=== PATIENT | male | born 1990 | race Caucasian/White ===

== ENCOUNTER 2017-12-26 12:42 | Emergency (ER) | payer BC ==
[~2017-12-26] VITALS: Ht 167.6 cm; Wt 76.0 kg
[2017-12-26 13:17] VITALS: BP 135/71
[2017-12-26] MEDS ORDERED: DOXY100C43 PO (15:05)
[2017-12-26] MEDS ORDERED: CEPH250T PO (15:05)
== END 2017-12-26 15:08 | disposition home or self-care (01) ==
LOC: ER 12:43
DX: L08.9 Local infection of the skin and subcutaneous tissue, unspecified (principal); J34.89 Other specified disorders of nose and nasal sinuses; Z86.14 Personal history of Methicillin resistant Staphylococcus aureus infection; Z79.899 Other long term (current) drug therapy
CPT/HCPCS: 99283

== ENCOUNTER 2025-07-15 16:57 | Inpatient (IN) | payer BC, MEDICAID ==
[~2025-07-15] VITALS: Ht 167.6 cm; Wt 68.0 kg
--- NOTE | 2025-07-15 17:21 | Physician Documentation ---
History of Present Illness Chief Complaint: Abdominal Pain Stated Complaint: CHEST PAIN Primary Medical Doctor: None HPI This is a 35-year-old male with history of pancreatitis who presents with epigastric pain onset this morning after ingesting alcohol. Patient reports v omiting without bloody emesis. Patient reports no fever. Chief Complaint: Abdominal pain, nausea vomiting Caveat: None Independent Historians: None History of Present Illness: Patient is a 35-year-old man who comes in complaining of abdominal pain that began earlier today with the associated nausea and vomiting. Pain is severe and diffuse. Patient last drank alcohol pr ior to arrival and had two shots of vodka but vomited immediately after. Patient has been drinking heavily for one month and drinks approximately 1-2 pt of vodka a day. Review of systems: All systems were reviewed and are negative except for what is indicated in the history of present illness. Past Medical History: Alcohol use disorder Past Surgical History: None Social History: Heavy alcohol use, occasional marijuana, denies other drug use Medications: Reviewed as documented Nursing Notes Allergies: Reviewed as documented in Nursing Notes Medication Reconciliation Allergies: Coded Allergies: sulfamethoxazole (Unverified Allergy, Unknown, HIVES, EDEMA, 07/15/25) trimethoprim (Unverified Allergy, Unknown, HIVES, EDEMA, 07/15/25) Past Medical History Past Medical History: MRSA Abscess Past Surgical History: noncontributory Alcohol Use: None Drug Use: none Lives with: Family Lives In: Home Review of Systems All Other Systems at this time: Reviewed and Negative ROS As stated above in the HPI, otherwise all systems are reviewed and negative. Patient denies any other acute symptoms other than above. All other systems are negative Physical Exam Vital Signs: RN Vital Signs have been reviewed: Yes, Temperature: 97.9, Source: Temporal, Heart Rate: 113, Respiratory Rate: 20, BP: 138/94, Pulse Oximetry: 97, Weight: 67.950 Oxygen Flow Rate: 0 Physical Exam General Appearance: MODERATE DISTRESS HEENT: Normal OP, DRY ORAL MUCOSA, PERRL, EOMI Neck: supple, normal ROM, trachea midline Pulmonary: No respiratory distress, MILD TACHYPNEA, CTA, BS equal Cardiac: TACHYCARDIC, REGULAR RHYTHM, no murmur, rub or gallop, GI: nondistended, soft, DIFFUSE TENDERNESS, normal bowel sounds, no guarding, no rebound Extremities: normal ROM, no swelling, non-tender Skin: intact, dry, warm, no rashes Neuro: AAOx3, speech is clear, no focal motor weakness Psych: normal affect, good eye contact, no apparent hallucination, normal speech Progress Results/Orders Results/Orders Vital Signs 07/15/25 17:07 Temp 97.9 Pulse 113 Resp 20 B/P (MAP) 138/94 Pulse Ox 97 O2 Flow Rate 0 Medical Decision Making Additional info obtained from: old records Findings MSE performed in triage and patient returned to ED lobby by nursing staff to await available ED room. Abdominal pain lab protocol initiated by nursing staff. Differential diagnosis includes but is not limited to: ACUTE PANCREATITIS, ACUTE GASTRITIS, ACUTE HEPATITIS, DEHYDRATION, ALCOHOL INTOXICATION, ALCOHOL WITHDRAWAL, ALCOHOLIC KETOACIDOSIS EKG independent interpretation: Performed at 5:01 p.m.. Sinus tachycardia, heart rate 119, normal axis, normal ST segments Chest x-ray, single view, indication: Tachycardia, alcohol withdrawal Independent interpretation: Lungs are clear, normal mediastinum, normal cardiac silhouette, no subdiaphragmatic free air, no acute cardiopulmonary process. CTA abdomen and pelvis with IV contrast, indication: Abdominal pain Impression: 1. Limited evaluation given noncontrast technique. 2. Possible peripancreatic free fluid. Correlate with lipase for possible acute pancreatitis. 3. Hepatomegaly with hepatic steatosis. 4. Bilateral nonobstructive nephrolithiasis. 5. Diverticulosis without evidence of acute diverticulitis. Laboratory data independent interpretation: CBC: Leukocytosis 13.8 CMP: Total bilirubin elevated at 3.9, LFTs are otherwise unremarkable, lipase elevated at 283, anion gap 20 Toxicology: Blood alcohol 13 Emergency department course/medical decision-making: Patient is a 35-year-old man who started drinking alcohol again and comes in with the abdominal pain. Patient is found to have acute alcoholic pancreatitis. Patient may also have some mild alcoholic ketoacidosis. Patient is given 1 L of normal saline. Patient is given Zofran 4 mg IV, morphine 4 mg IV. Patient will require IV Valium for probable alcohol withdrawal. Recommend admission. Test results and treatment plan reviewed with the patient. Consultation/communications: 10:10 p.m.: Case discussed with the resident hospitalist. She will evaluate the patient for admission. Departure Time of Disposition: 21:36 Admission Level of Care: Med/Surg Impression: Primary Impression: Acute pancreatitis Qualified Codes: K85.20 - Alcohol induced acute pancreatitis without necrosis or infection Additional Impression: Alcohol use disorder Condition: Fair Education Educated: Patient Educated regarding: diagnosis, treatment Signature Scribe Signature: No scribe Attestation: No scribe SHANIQUA TINAJERO Jul 15, 2025 17:21 CAMI GONZALEZ MD Jul 15, 2025 21:36
[2025-07-15 17:39] LABS: MEAN PLATELET VOLUME 7.3 FL (7.4-10.4); RED CELL DISTRIBUTION WIDTH 13.5 % (11.5-14.5)
[2025-07-15 17:51] LABS: CREATININE 0.97 MG/DL (0.60-1.10); TOTAL CARBON DIOXIDE 21.2 MMOL/L (24-32); eCRCL 98 ML/MIN; eGFR 89 ML/MIN
[2025-07-15 18:00] LABS: PRO BRAIN NATRIURETIC PEPTIDE < 30 PG/ML (0-125)
[2025-07-15] MEDS: ondansetron/PF 4mg/2ml inj IV ONE (20:35)
[2025-07-15] MEDS: normal saline 1000ML IV soln IVB ONE (20:36)
[2025-07-15] MEDS: morphine 4 MG/ML inj SYRINge IV PRN (20:36)
--- NOTE | 2025-07-15 20:51 | RADIOLOGY REPORT ---
Exam: CT CT ABDOMEN PELVIS History: Abdominal Pain Comparison Study: None TECHNIQUE: Multidetector CT of the abdomen and pelvis was performed from lung bases to pubic symphysi s. Imaging was performed without IV contrast. Axial, coronal, and sagittal multiplanar reformats were obtained from the axial data set by the technologist. RADIATION DOSE: DLP 534.17 mGy.cm; CTDI vol 10.48 mGy. Findings: Limited evaluation given noncontrast technique. Lungs: The lung bases are clear. Heart: No cardiomegaly or pericardial effusion. Liver: Fatty infiltration of the liver. The liver measures 19.9 cm in craniocaudal dimension. Gallbladder: Unremarkable. Spleen: Unremarkable Pancreas: Possible peripancreatic free fluid. Adrenals: Unremarkable Kidneys: Bilateral nonobstructive nephrolithiasis. GI tract: Diverticulosis without evidence of acute diverticulitis. : Unremarkable. Vasculature: Unremarkable Lymphadenopathy: Absent Peritoneum: No ascites Musculoskeletal: Unremarkable Soft tissues: Unremarkable Impression: 1. Limited evaluation given noncontrast technique. 2. Possible peripancreatic free fluid. Correlate with lipase for possible acute pancreatitis. 3. Hepatomegaly with hepatic steatosis. 4. Bilateral nonobstructive nephrolithiasis. 5. Diverticulosis without evidence of acute diverticulitis.
[2025-07-15 21:44] LABS: ETHANOL 13 MG/DL (<10)
--- NOTE | 2025-07-15 22:07 | RADIOLOGY REPORT ---
CHEST RADIOGRAPH Indication: abdominal pain Technique: Single frontal view of the chest was obtained Comparison: None FINDINGS: Lines and Tubes: None Lungs: No focal consolidation. Pleura: No effusion. No pneumothorax. Cardiomediastinal contours: Unremarkable Bones: No acute osseous abnormality. IMPRESSION: No acute cardiopulmonary disease.
[2025-07-15] MEDS: ketorolac trometh 15mg/ml vial 15 MG/ML ML IV ONE (22:36)
[2025-07-15] MEDS: HYDROmorphone inj. 0.5 MG/0.5 ML DISP.SYRIN IV ONE (22:38)
[2025-07-15] MEDS ORDERED: morphine 4 MG/ML inj SYRINge IV PRN (22:45)
[2025-07-15] MEDS ORDERED: potassium Cl 40MEQ/1/2NS 520ml 520 ML IV PRN (22:50)
[2025-07-15] MEDS ORDERED: magnesium Cl slow-release 64mg tablet PO PRN (22:50)
[2025-07-15] MEDS ORDERED: ondansetron/PF 4mg/2ml inj IV PRN (22:50)
[2025-07-15] MEDS ORDERED: mag hydrox/Alum hydrox/simeth 30ml oral suspension PO PRN (22:50)
[2025-07-15] MEDS ORDERED: potassium Cl 20 mEq SR tablet PO PRN (22:50)
[2025-07-15] MEDS ORDERED: magnesium sulf-water 4G/100mL 100 ML IV PRN (22:50)
[2025-07-15] MEDS ORDERED: magnesium sulf-water 2g/50mL 50 ML IV PRN (22:50)
[2025-07-15] MEDS: ringers solution, lactated 1000ml IV soln IV ONE (22:55)
[2025-07-15] MEDS: diazepam inj 5 MG/ML inj. IV ONE (22:55)
[2025-07-15] MEDS ORDERED: haloperidol lactate 5mg/ml inj IM PRN (23:00)
--- NOTE | 2025-07-15 23:22 | HISTORY AND PHYSICAL-Residence ---
History & Physical Providers to CC Resident Creating Document: SANDRA ANDREWS RES ~ History of Present Illness Primary Medical Doctor: None Reason for Admit\Complaint: abdominal pain History of Present Illness 35 year old male with past medical history of severe alcohol abuse and pancreatitis has come to the ED with chief complaints of abdominal pain. Patient reports that the pain mainly present in the epigastric region began earlier today at around 2pm in the afternoon, after consuming a couple of alcoholic drinks earlier in the day, progressively increasing in intensity,associated with nausea and vomiting. Patient rates the pain as 9/10 in intensity, radiating to his left back.Patient has been vomiting since the pain started , had about 5 episodes so far,no blood seen. Patient last drank alcohol prior to arrival. Patient usually drinks a lot but has been drinking heavily for the last one month , drinks approximately 1-2 pt of vodka a day.Patient denies any other complaints like SOB, palpitations, tremors. Allergies: Coded Allergies: sulfamethoxazole (Unverified Allergy, Unknown, HIVES, EDEMA, 07/15/25) trimethoprim (Unverified Allergy, Unknown, HIVES, EDEMA, 07/15/25) Home Medications Home Medications Active Past Medical History Past Medical History alcohol abuse pancreatitis Past Surgical History Surgical History Comment ankle surgeries, thumb surgery Past Social History Social History Comment Patient smokes once in a while. heavy alcohol drinker- started drinking since the age of 22 years,drinks mostly vodka, 1-2 pints per day. Patient is a homless. currently under disability. No other illicit drug use. FAMILY HISTORY- nothing significant. Smoking: Non-Smoker Alcohol Use: None Drug Use: None Lives with: Family Lives In: Home ROS All Other Systems: Reviewed and Negative ROS All Other Systems: Reviewed and Negative Constitutional: Reports: no symptoms reported Eyes: Reports: no symptoms reported ENT: Reports: no symptoms reported Respiratory: Reports: No symptoms reported Cardiovascular: Reports: no symptoms reported Gastrointestinal: Reports: severe epigastric pain radiating to his back.nausea Genitourinary: Reports: no symptoms reported Male Genitalia: Reports: no symptoms reported Neurological: Reports: no symptoms reported Musculoskeletal: Reports: no symptoms reported Integumentary: Reports: no symptoms reported Allergic/Immunologic: Reports: no symptoms reported Hematologic/Lymphatic: Reports: no symptoms reported Endocrine: Reports: no symptoms reported Psychiatric: Reports: no symptoms reported Exam Vitals: Vital Signs Date Time Temp Pulse Resp B/P (MAP) Pulse Ox O2 Delivery O2 Flow Rate FiO2 07/15/25 22:38 16 07/15/25 21:43 07/15/25 21:42 97.9 97 99 0 General: General: Alert, awake, oriented to time, person, place. In severe pain. HEENT: Conjunctiva pink, Sclera clear, Mucus Membranes moist. Neck: Supple without masses and tenderness. Resp: Normal vesicular breath sounds heard . No wheezing Heart: Regular Rate and rhythm, normal S1 and S2 without murmur, rub or gallop. Abdomen: Soft and tenderness noted all over the abdomen. no rigidity, no guarding bowel sounds present, Extremities: peripheral pulses well felt Skin: Warm and Dry. Neurology-no focal neurological deficits Diagnostic Data Last Recorded Lab Results: 07/15/25 17007/15/25 170 Diagnostic Data: Laboratory Tests Test 07/15/25 23:07 Coagulation Comments Advance Care Planning Advanced Care plannin - 30 Minutes (Full code) Additional Plan Abdominal pain Acute alcoholic pancreatitis BISAP SCORE-0 Vitals - stable WBC-9.7 , Procal normal, Lactic acid-5.4, trended down to 0.5. lipase-283 Triglycerides-232 Bilirubin-4.7 CT abdomen-Possible peripancreatic free fluid, gallbladder looks unremarkable. Received 2 L bolus, started on LR 150 mLs/hr. Patient on pain medication morphine p.r.n. Patient on clear liquid diet. Alcohol use disorder Toxicology positive for ethyl alcohol-13 Alcohol withdrawal protocol in place. Folic acid, thiamine being given. Substance use navigator consulted. High anion gap Alcoholic ketoacidosis Hypokalemia Hypomagnesemia Anion gap-20 Urine ketones-positive Hypokalemia Hypomagnesemia Continue IV fluids. Patient on potassium replacement protocol. Disposition- continue to monitor the patient. Substance use navigator to be consulted. Code Status: Full code DVT prophylaxis: Heparin Analgesia/sedation: Morphine Line/tube: PIV GI prophylaxis: None Nutrition: Clear liquid Physical therapy: Yes Prognosis: Guarded Sandra Andrews PGY-1 Date of Service: Jul 16, 2025 Billing Provider: CORRY MANDUJANO MD, PREETHI, RES Jul 15, 2025 23:22
[2025-07-15 23:26] LABS: INR 1.2 INR
[2025-07-15] MEDS ORDERED: MULT-1085 PO (23:35)
[2025-07-15] MEDS ORDERED: LORA-268 PO (23:35)
[2025-07-16] VITALS (9 sets, daily range): BP systolic 128–138; BP diastolic 75–97; PULSE 70–106; RESP 17–24; TEMP 97.2–98.9; O2SAT 97–99
[2025-07-16] MEDS: ringers solution, lacted 1,000 ML IV SCH (01:03)
[2025-07-16 01:31] LABS: LEUKOCYTE ESTERASE ,URINE NEGATIVE (Neg); NITRITES, URINE NEGATIVE (Neg); OCCULT BLOOD,URINE TRACE-INTACT (Neg)
[2025-07-16 01:32] LABS: UA COLLECTION TYPE CLN CATCH MIDSTREAM
[2025-07-16 01:38] LABS: MUCUS STRANDS MANY /LPF (Neg); SQUAMOUS EPITHELIAL CELL,UR FEW /LPF (FEW)
[2025-07-16 01:42] LABS: URINE AMPHETAMINE SCREEN NEGATIVE (Neg); URINE BARBITUATE SCREEN NEGATIVE (Neg); URINE BENZODIAZEPINES SCREEN POSITIVE (Neg); URINE CANNABINOID SCREEN NEGATIVE (Neg); URINE COCAINE SCREEN NEGATIVE (Neg); URINE METHADONE SCREEN NEGATIVE (Neg); URINE OPIATE SCREEN POSITIVE (Neg); URINE PHENCYCLIDINE SCREEN NEGATIVE (Neg)
[2025-07-16] MEDS: HYDROmorphone inj. 0.5 MG/0.5 ML DISP.SYRIN IV PRN (02:15)
[2025-07-16 03:09] LABS: MEAN PLATELET VOLUME 6.5 FL (7.4-10.4); RED CELL DISTRIBUTION WIDTH 13.4 % (11.5-14.5)
[2025-07-16 03:30] LABS: CREATININE 0.80 MG/DL (0.60-1.10); LDL CHOLESTEROL 44 MG/DL (50-100); TOTAL CARBON DIOXIDE 27.7 MMOL/L (24-32); eCRCL 119 ML/MIN; eGFR > 90 ML/MIN
[2025-07-16 03:38] LABS: CHOL/HDL RATIO 3.2 (0.00-4.99)
--- NOTE | 2025-07-16 06:17 | ELECTROCARDIOGRAPH REPORT ---
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
[2025-07-16] MEDS: K and/or MAG REPLACEMENT MC SCH (08:00)
[2025-07-16] MEDS: magnesium Cl slow-release 64mg tablet PO SCH (08:15)
[2025-07-16] MEDS: thiamine 100mg/ml 2ml inj. IV SCH (09:42)
[2025-07-16] MEDS: enoxaparin 40mg/0.4ml syringe SUBCUT SCH (09:42)
[2025-07-16] MEDS: docusate sod 100mg capsule PO SCH (09:43)
[2025-07-16] MEDS: folic acid 1mg/0.2ml inj IV SCH (09:44)
--- NOTE | 2025-07-16 15:40 | PROGRESS NOTE- Residence ---
Progress Note - Resident Providers to CC Resident Creating Document: JAIMIE TRIPATHI RES CC: SREE PAK MD ~ Antibiotic Timeout Antibiotic Ordered?: No Subjective Patient was seen and examined at his bedside. Patient continues to have severe pain even with slight movement. Patient had a drop in hemoglobin from 15 to 12g/dl, however no hemoptysis hematochezia noted. No other acute overnight symptoms noted Objective Vital Signs Date Time Temp Pulse Resp B/P (MAP) Pulse Ox O2 Delivery O2 Flow Rate FiO2 07/16/25 06:30 74 07/16/25 05:59 19 99 Room Air 07/16/25 02:00 98.1 131/88 (102) 07/15/25 22:15 0 General: Awake, oriented to person, place and time HEENT: Conjunctive are pink, sclerae clear, no icterus, pupil is equal in both sides, reactive to light, no ear discharge, no pharyngeal erythema or an edema. Neck: Supple, no JVD, no lymphadenopathy and thyromegaly. Chest: Equal air entry on both lungs, no additional sounds no rhonchi no wheezing at the moment. Cardiovascular: S1-S2 regular sinus rhythm and, regular rate, no gallops, no rubs, no murmurs Abdomen: No visible peristalsis, Bowel sounds present on auscultation, soft, severe tenderness throughout the abdomen, guarding and rigidity present Extremities: No obvious deformities, no pitting edema bilaterally, capillary refill intact, peripheral pulsations are intact on both sides Central Nervous System: No focal neurological deficits, no motor or sensory weakness in all 4 extremities, could move all 4 extremities, 2+ deep tendon reflexes, negative Babinski. Musculoskeletal: No joint swelling, deformities, inflammations, and no scoliosis and back tenderness Skin: Warm and dry. Dry oral mucosa. Result Diagram: 07/16/25 0300 07/16/25 0300 Coagulation Studies Laboratory Tests Test 07/15/25 23:07 Prothrombin Time 11.9 SECONDS (9.0-12.0) INR International Normalized Ratio 1.2 INR Coagulation Comments Assessment Assessment 35 year old patient with chronic history of alcohol abuse presented to the ED with symptoms of epigastric pain and is diagnosed with acute pancreatitis Plan Plan Acute Pancreatitis, alcohol intake Diagnostic criteria: abdominal pain in epigastrium, 3 X elevated serum lipase BISAP score:1; Lipase 283 History of Alcohol abuse (ethyl alcohol level >13) Urine toxicology ordered, positive for opiates and benzodiazepines CT abdomen report: Possible peripancreatic free fluid. Correlate with lipase for possible acute pancreatitis. Hepatomegaly with hepatic steatosis. Last drink was consumed last afternoon Patient received 1 L normal saline 1 L lactated ringer bolus Drop in hemoglobin 15.3 to 12.3g/dl(possibly due to hemodilution), patient has no complaints of hematemesis AST 34, ALT 22 Plan -NPO for now; advance diet as tolerated -follow up with abdominal ultrasound in view of liver cirrhosis -continue alcohol withdrawal protocol -initiated patient on Protonix 40 mg b.i.d. -continue lactated Ringer at 1:50 a.m. mL/hour Hyperlipidemia Triglycerides-232 No criteria for statin at this point Alcohol use disorder Toxicology positive for ethyl alcohol-13 Alcohol withdrawal protocol in place. Substance use navigator consulted. High anion gap alcoholic ketoacidosis, resolved Hypomagnesemia Replacement protocol in place Code Status: Full code DVT Prophylaxis: Lovenox Lines/Tubes: PIV Gi Prophylaxis: Protonix Nutrition: NPO PT:yes Prognosis: Guarded Disposition: Follow up with abdominal ultrasound, NPO currently ,advance diet as tolerated. Continue to closely monitor patient's hemoglobin Jaimie Tripathi MD Internal medicine resident,PGY-1 Addendum: Chart reviewed by me agree with the assessment and plan as above. Patient is a 35-year-old male admitted for acute pancreatitis, currently strict NPO only ice chips for now. AST and ALT are within normal limits he has elevated bilirubin 4.7 no signs of jaundice noted. Triglycerides 232. On the alcohol withdrawal protocol . Follow up with ultrasound of the abdomen. Ana Laura Li MD IM resident, PGY 3 Date of Service: Jul 16, 2025 Billing Provider: SREE PAK MD, JAHNAVI, DEDRICK Jul 16, 2025 15:40 ANA LAURA LI, DEDRICK Jul 16, 2025 19:01
[2025-07-16 16:45] LABS: LACTATE DEHYDROGENASE 261 U/L (85-227)
[2025-07-16] MEDS: potassium Cl 20 mEq SR tablet PO PRN (17:04)
[2025-07-17 02:00] VITALS: BP 127/95; PULSE 91; RESP 19; TEMP 97; O2SAT 98
[2025-07-17] MEDS: HYDROmorphone inj. 0.5 MG/0.5 ML DISP.SYRIN IV PRN (04:10)
[2025-07-17 06:00] VITALS: BP 119/74; PULSE 100; RESP 16; TEMP 98; O2SAT 96
[2025-07-17 06:41] LABS: MEAN PLATELET VOLUME 7.3 FL (7.4-10.4); RED CELL DISTRIBUTION WIDTH 13.7 % (11.5-14.5)
[2025-07-17 07:00] VITALS: RESP 16; O2SAT 98
[2025-07-17 07:12] LABS: CREATININE 0.56 MG/DL (0.60-1.10); TOTAL CARBON DIOXIDE 26.4 MMOL/L (24-32); eCRCL 169 ML/MIN; eGFR > 90 ML/MIN
--- NOTE | 2025-07-17 08:52 | ELECTROCARDIOGRAPH REPORT ---
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 JOSÉ MIGUEL [place] Measurements Intervals [place] Rate: 81 P: 79 [place]: 117 QRS: 91 QRSD: 95 T: 54 QT: 371 QTc: 431 Interpretive Statements Sinus rhythm Borderline short [place] interval Borderline right axis deviation Electronically Signed On 07-17-2025 9:56:[address] JOSÉ MIGUEL [place] Please click the below link to view image of tracing.
--- NOTE | 2025-07-17 11:36 | RADIOLOGY REPORT ---
INDICATION: acute pancreatitis TECHNIQUE: Multiple real-time sonographic images were obtained of the Abdomen. COMPARISON: None FINDINGS: PANCREAS: Obscured LIVER: Normal in size and echogenicity. No mass. Perihepatic ascites and perisplenic ascites is noted SPLEEN: Unremarkable GALLBLADDER: Gallbladder wall measures 1.5 mm. No gallstones. No sludge. No pericholecystic fluid. N egative cuevas sign. COMMON BILE DUCT: Measures 3.3 mm. RIGHT KIDNEY: Measures 11.6 cm. Normal in echogenicity. No mass. No urinary stones. No hydronephrosi s. LEFT KIDNEY: Measures 11.1 cm. Normal in echogenicity. No mass. Echogenic foci within the lower pole of the left kidney with twinkle artifact measuring 0.7 x 0.2 x 0.6 cm likely a stone. No hydronephro sis. Aorta: normal limits. IVC: normal limits. OTHERS: No free fluid. IMPRESSION: 1. Perihepatic and perisplenic ascites. 2. Nonobstructive left nephrolithiasis measuring 7 mm. No hydronephrosis
--- NOTE | 2025-07-17 13:37 | PROGRESS NOTE- Residence ---
Progress Note - Resident Providers to CC Resident Creating Document: JAIME NOONAN RES CC: SREE PAK MD ~ Antibiotic Timeout Antibiotic Ordered?: No Subjective Patient was examined and seen at bedside, he reports diffuse abdominal pain 7/10 radiating to upper and lower back, Reports nausea but no vomiting Objective Vital Signs Date Time Temp Pulse Resp B/P (MAP) Pulse Ox O2 Delivery O2 Flow Rate FiO2 07/17/25 08:51 18 07/17/25 06:30 91 07/17/25 06:00 98.0 119/74 (89) 96 07/16/25 20:00 Room Air 07/15/25 22:15 0 Result Diagram: 07/17/25 0555 07/17/25 0555 General: awake, alert oriented to place, time, and person HEENT: No pallor present, no icterus, moist mucous membranes Neck: No masses and tenderness Resp: Unlabored. Lungs clear to auscultation bilaterally. Chest: Normal expansion. Cardiovascular: Regular Rate and rhythm, normal S1 and S2 without murmur, rub or gallop Abdomen: Soft and diffuse abdominal pain radiating to back , no organomegaly, no guarding and rigidity, bowel sounds present Neuro: No focal weakness in the upper and lower limb muscles, power of the muscles 5/5 bilateral upper and lower extremities, normal reflexes bilaterally. Cranial nerves intact Extremities: No cyanosis,clubbing or edema MusuloSkeletal: No arthalagia or myalgia. Skin: Warm and Dry. Psych: Normal affect Coagulation Studies Laboratory Tests Test 07/15/25 23:07 Prothrombin Time 11.9 SECONDS (9.0-12.0) INR International Normalized Ratio 1.2 INR Coagulation Comments Assessment Assessment 35 year old patient with chronic history of alcohol abuse presented to the ED with symptoms of epigastric pain and is diagnosed with acute pancreatitis Plan Plan Acute Pancreatitis Seconday to Alcohol Use Diagnostic criteria: abdominal pain in epigastrium, 3 X elevated serum lipase BISAP score:1; Lipase 283 trending upward to >375 History of Alcohol abuse (ethyl alcohol level >13) CT abdomen report: Possible peripancreatic free fluid. Correlate with lipase for possible acute pancreatitis. Hepatomegaly with hepatic steatosis. Patient received 1 L normal saline 1 L lactated ringer bolus Drop in hemoglobin 15.3 to 13.1(possibly due to hemodilution), patient has no complaints of hematemesis AST 39, ALT 19 UA positive for opiates,benzo and ethyl alcohol Plan -Transitioned to clear liquid diet. -continue alcohol withdrawal protocol -Continue patient on Protonix 40 mg b.i.d. -continue lactated Ringer at 150 mL/hour Thrombocytopenia Platelets: 112 Lovenix held in view of this Please closely monitor platelets. Bilateral Non Obstructive Nephrolithiasis Ct Scan Abdomen/Pelvis:1. Limited evaluation given noncontrast technique. 2. Possible peripancreatic free fluid. Correlate with lipase for possible acute pancreatitis. 3. Hepatomegaly with hepatic steatosis. 4. Bilateral nonobstructive nephrolithiasis. 5. Diverticulosis without evidence of acute diverticulitis. Started patient on Tamsulosin 0.4 mg We will continue to adminster fluids. Alcohol use disorder Toxicology positive for ethyl alcohol-13 Alcohol withdrawal protocol in place. Substance use navigator consulted. High anion gap alcoholic ketoacidosis, resolved Hypomagnesemia Resolved Code Status: Full code DVT Prophylaxis: SCD Lines/Tubes: PIV Gi Prophylaxis: Protonix Nutrition: Clear Liquid Diet PT: yes Prognosis: Guarded Disposition: We will continue to monitor patient, Please closely monitor Platelets. Addendum: History of alcohol withdrawal seizures twice in the past and the last one was about five months back. Is enrolled in an outpatient alcohol rehab program. Was given Librium. Has no signs of withdrawal symptoms like tremors, anxiety, seizures or visual hallucinations. On clear liquids. Monitor lipase and amylase. On ringer's lactate @ 150cc/hr. Will advance diet as tolerated. Possible d/s in 24-48hrs Date of Service: Jul 17, 2025 Billing Provider: SREE PAK MD, SANJAY, RES Jul 17, 2025 13:37 JILLIAN ZAMUDIO RES Jul 17, 2025 22:59
[2025-07-17] MEDS: magnesium hydroxide 30ml (MOM) UD suspension PO PRN (17:01)
[2025-07-17 18:00] VITALS: BP 123/84; PULSE 100; RESP 19; TEMP 97.5; O2SAT 99
[2025-07-17 20:00] VITALS: RESP 19; O2SAT 99
[2025-07-17 22:00] VITALS: BP 117/80; PULSE 100; RESP 16; TEMP 97.4; O2SAT 98
[2025-07-17] MEDS: pantoprazole 40mg Tablet.DR PO SCH (22:16)
[2025-07-18] VITALS (8 sets, daily range): BP systolic 114–138; BP diastolic 75–94; PULSE 85–103; RESP 14–22; TEMP 97.3–98.4; O2SAT 94–99
[2025-07-18 06:33] LABS: MEAN PLATELET VOLUME 8.4 FL (7.4-10.4); RED CELL DISTRIBUTION WIDTH 13.2 % (11.5-14.5)
[2025-07-18 07:08] LABS: CREATININE 0.51 MG/DL (0.60-1.10); TOTAL CARBON DIOXIDE 24.6 MMOL/L (24-32); eCRCL 186 ML/MIN; eGFR > 90 ML/MIN
[2025-07-18] MEDS: dextrose 50%-water 50ml dispensing syringe IV PRN (07:44)
--- NOTE | 2025-07-18 10:35 | PROGRESS NOTE- Residence ---
Progress Note - Resident Providers to CC Resident Creating Document: JAIME NOONAN RES CC: SREE PAK MD ~ Antibiotic Timeout Antibiotic Ordered?: No Subjective Patient was examined and seen at bedside, he reports diffuse abdominal pain 6/10 radiating to lower back, reports no nausea and no vomiting. Objective Vital Signs Date Time Temp Pulse Resp B/P (MAP) Pulse Ox O2 Delivery O2 Flow Rate FiO2 07/18/25 07:44 16 07/18/25 06:00 97.3 87 114/75 (88) 96 Room Air 07/15/25 22:15 0 Result Diagram: 07/18/25 0547 07/18/25 0547 General: awake, alert oriented to place, time, and person HEENT: No pallor present, no icterus, moist mucous membranes Neck: No masses and tenderness Resp: Unlabored. Lungs clear to auscultation bilaterally. Chest: Normal expansion. Cardiovascular: Regular Rate and rhythm, normal S1 and S2 without murmur, rub or gallop Abdomen: Soft and diffuse abdominal tender radiating to lower back , no organomegaly, no guarding and rigidity, bowel sounds present Neuro: No focal weakness in the upper and lower limb muscles, power of the muscles 5/5 bilateral upper and lower extremities, normal reflexes bilaterally. Cranial nerves intact Extremities: No cyanosis,clubbing or edema MusuloSkeletal: No arthalagia or myalgia. Skin: Warm and Dry. Psych: Normal affect Coagulation Studies Laboratory Tests Test 07/15/25 23:07 Prothrombin Time 11.9 SECONDS (9.0-12.0) INR International Normalized Ratio 1.2 INR Coagulation Comments Assessment Assessment 35 year old patient with chronic history of alcohol abuse presented to the ED with symptoms of epigastric pain and is diagnosed with acute pancreatitis Plan Plan Acute Pancreatitis Seconday to Alcohol Use Diagnostic criteria: abdominal pain in epigastrium, 3 X elevated serum lipase BISAP score:1; Lipase trended downward to 221 History of Alcohol abuse (ethyl alcohol level >13) CT abdomen report: Possible peripancreatic free fluid. Correlate with lipase for possible acute pancreatitis. Hepatomegaly with hepatic steatosis. Patient received 1 L normal saline 1 L lactated ringer bolus Drop in hemoglobin 15.3 to 12.3(possibly due to hemodilution), patient has no complaints of hematemesis Amylase and lipase trending downward. AST 28, ALT 16 Bilirubin trending downward from 3.9 to 2.8 UA positive for opiates,benzo and ethyl alcohol Plan -Full Liquid Diet -continue alcohol withdrawal protocol -Continue patient on Protonix 40 mg b.i.d. -continue lactated Ringer at 150 mL/hour Thrombocytopenia Platelets today 111 Follow up with PT INR , PTT Urine Occult blood trace-intact No active bleeding Lovenix held in view of this Please closely monitor platelets Normocytic Anaemia likely due to Hemodilution Hgb 12.3 Hct 35.8 Mcv: 89.3 Follow up with Iron panel Bilateral Non Obstructive Nephrolithiasis Ct Scan Abdomen/Pelvis:1. Limited evaluation given noncontrast technique. 2. Possible peripancreatic free fluid. Correlate with lipase for possible acute pancreatitis. 3. Hepatomegaly with hepatic steatosis. 4. Bilateral nonobstructive nephrolithiasis. 5. Diverticulosis without evidence of acute diverticulitis. Continue patient on Tamsulosin 0.4 mg We will continue to adminster fluids. Alcohol use disorder Toxicology positive for ethyl alcohol 13 Alcohol withdrawal protocol in place. Substance use navigator consulted. Hyponatremia Na 134 Urine lytes ordered Follow up with serum and ua osmolality Continue LR 150 ML/HR High anion gap alcoholic ketoacidosis, resolved Hypomagnesemia Resolved Code Status: Full code DVT Prophylaxis: SCD Lines/Tubes: PIV Gi Prophylaxis: Protonix Nutrition: Full Liquid Diet PT: yes Prognosis: Guarded Disposition: We will continue to monitor patient will advance diet as tolerated, Please closely monitor Platelets, will likely be discharged tomorrow. Addendum: Patient feeling better. Walking around in the hallway without much difficulty. Tolerated clear liquid diet and the patient also wants to advance diet. Advanced diet to full liquid and to regular diet tonight. Amylase and lipase trending down. Total bilirubin trending down. Abdominal ultrasound showed 7 mm nonobstructive left nephrolithiasis. Will require tamsulosin at the time of discharge. Possible discharge in a.m. Date of Service: Jul 18, 2025 Billing Provider: SREE PAK MD, SANJAY, RES Jul 18, 2025 10:34 JILLIAN ZAMUDIO RES Jul 18, 2025 16:38
[2025-07-18 17:49] LABS: APTT 30 SECONDS (22-32); INR 1.0 INR
[2025-07-18 20:39] LABS: OSMOLALITY UA 168.0 MOSM/K (50-1400)
[2025-07-18 20:47] LABS: CREATININE,URINE RANDOM 21.0 MG/DL; TOTAL PROTEIN,URINE RANDOM 15.6 MG/DL; UA UREA RANDOM 110.0 MG/DL
[2025-07-19] MEDS: HYDROcodone/acetaminophen 10/325mg tab PO PRN (00:45)
[2025-07-19 02:00] VITALS: BP 115/80; PULSE 94; RESP 12; TEMP 97.1; O2SAT 97
[2025-07-19 06:33] LABS: MEAN PLATELET VOLUME 7.9 FL (7.4-10.4); RED CELL DISTRIBUTION WIDTH 13.3 % (11.5-14.5)
[2025-07-19 07:00] VITALS: BP 104/71; PULSE 69; RESP 17; TEMP 97.3; O2SAT 97
[2025-07-19 07:09] LABS: CREATININE 0.66 MG/DL (0.60-1.10); TOTAL CARBON DIOXIDE 30.6 MMOL/L (24-32); eCRCL 144 ML/MIN; eGFR > 90 ML/MIN
[2025-07-19] MEDS ORDERED: potassium Cl 40MEQ/1/2NS 520ml 520 ML IV PRN (07:25)
[2025-07-19] MEDS ORDERED: potassium Cl 20 mEq SR tablet PO PRN (07:25)
[2025-07-19] MEDS: potassium Cl 20 mEq SR tablet PO PRN (07:34)
[2025-07-19 08:00] VITALS: RESP 18; O2SAT 97
[2025-07-19 10:43] VITALS: BP 121/80; PULSE 89; RESP 19; TEMP 98.3; O2SAT 97
[2025-07-19] MEDS ORDERED: FOLI1TAB27 PO (12:35)
[2025-07-19] MEDS ORDERED: THIA50TA10 PO (12:35)
[2025-07-19] MEDS ORDERED: PANT40SU2 PO (12:35)
--- NOTE | 2025-07-19 15:16 | DISCHARGE SUMMARY-Residence ---
Discharge Summary Providers to CC Resident Creating Document: VIGNESH LANE, RES ~ Discharge Summary Admission Diagnosis: ABDOMINAL PAIN Hospital Course DATE OF ADMISSION: 07/15/2025 DATE OF DISCHARGE: 07/19/2025 Discharge Diagnosis\Comment: Acute Pancreatitis Seconday to Alcohol Use BISAP score:1; Chronic alcohol use disorder: Thrombocytopenia Normocytic Anaemia likely due to Hemodilution Bilateral Non Obstructive Nephrolithiasis Hyponatremia High anion gap alcoholic ketoacidosis, resolved Hypomagnesemia Resolved Operations\Procedures: None Consultants: None Complications: None Condition on DC: Stable New Medications: Folic Acid* (Folic Acid*) Y Tab 1 TAB PO DAILY for 30 Days, #30 TAB 0 Refills Pantoprazole Sodium (Protonix) 40 Mg Suspdr.pkt 40 MG PO DAILY for 30 Days, #30 PACKET Thiamine HCl (Vitamin B-1) 50 Mg Tablet 2 TAB PO DAILY for 30 Days, #60 TAB 0 Refills Continued Medications: Lorazepam (Ativan) 0.5 Mg Tablet 1 TAB PO Q12H PRN PRN for anxiety for 30 Days, #60 TAB 0 Refills Multivitamin (Multi Vitamin Daily) 1 Each Tablet 1 TAB PO DAILY for 30 Days, #30 TAB 0 Refills Discharge Summary: HPI: 35 year old male with past medical history of severe alcohol abuse and pancreatitis has come to the ED with chief complaints of abdominal pain. Patient reports that the pain mainly present in the epigastric region began earlier today at around 2pm in the afternoon, after consuming a couple of alcoholic drinks earlier in the day, progressively increasing in intensity,associated with nausea and vomiting. Patient rates the pain as 9/10 in intensity, radiating to his left back.Patient has been vomiting since the pain started , had about 5 episodes so far,no blood seen. Patient last drank alcohol prior to arrival. Patient usually drinks a lot but has been drinking heavily for the last one month , drinks approximately 1-2 pt of vodka a day.Patient denies any other complaints like SOB, palpitations, tremors. Hospital course: 35 years old male patient came to the hospital with chief complaint of abdominal pain. The patient was admitted due to acute alcoholic pancreatitis, the patient initially was treated with aggressive IV hydration based on ringer lactate at 150 mL/hour. For pain control the patient was started on Orient and morphine. Due to alcohol consumption history, alcohol withdrawal protocol was placed, thiamine, folic acid and as needed Ativan and haloperidol. Upon the following days the patient reported significant improvement of abdominal pain, the patient initially was started on clear liquid diet, tolerated appropriately and advanced to full liquid diet and regular diet respectively. The patient tolerated regular diet, remained hemodynamically stable. Physical therapy evaluated the patient, the patient is home independent. academic services coordinator evaluated the patient, resources were given to the patient. The patient is eager to be discharged home. The patient will be discharged. Discharge course: The patient remained hemodynamically stable. The patient will be discharged with the following instructions: Come back to the emergency department or call 911 if severe abdominal pain, chest pain, palpitations, fever, abdominal pain is evidenced. Take pantoprazole one tablet of 40 mg daily. Take folic acid one tablet of 1 mg daily. Take thiamine two tablets of 25 mg daily. Continue your home medication Ativan one tablet of 0.5 mg every 12 hours as needed for anxiety. Please follow-up with your primary care physician at [facility] within two weeks. Keep well hydrated with a at least 2 L of water daily. Strong recommendation to stop alcohol consumption which triggered this episode of acute pancreatitis. Physical exam: General: Well alert, well oriented, not confused, not agitated, not in acute distress, well cooperated during the physical. HEENT: Conjunctive are pink, sclerae clear, no icterus, pupil is equal in both sides, reactive to light, no ear discharge, no pharyngeal erythema or an edema. Neck: Supple, no JVD, no lymphadenopathy and thyromegaly. Chest: Equal air entry on both lungs, no additional sounds no rhonchi no wheezing at the moment. Cardiovascular: S1-S2 regular sinus rhythm and, regular rate, no gallops, no rubs, no murmurs Abdomen: No visible peristalsis, Bowel sounds present on auscultation, soft, nontender, no guarding, no rigidity Extremities: No obvious deformities, no pitting edema bilaterally, capillary refill intact, peripheral pulsations are intact on both sides Central Nervous System: No focal neurological deficits, no motor or sensory weakness in all 4 extremities, could move all 4 extremities, 2+ deep tendon reflexes, negative Babinski. Musculoskeletal: No joint swelling, deformities, inflammations, and no scoliosis and back tenderness Skin: Warm and dry. Vital Signs Date Time Temp Pulse Resp B/P (MAP) Pulse Ox O2 Delivery O2 Flow Rate FiO2 9/8/25 10:43 98.3 89 19 121/80 (94) 97 07/19/25 08:00 Room Air 0.0 Laboratory Tests Test 07/18/25 05:47 07/18/25 07:36 07/18/25 08:08 07/18/25 13:35 White Blood Count 11.1 X10'3 Red Blood Count 4.00 X10'6 Hemoglobin 12.3 g/dl Hematocrit 35.8 % Mean Corpuscular Volume 89.3 FL Mean Corpuscular Hemoglobin 30.8 PG Mean Corpuscular Hemoglobin Concent 34.5 g/dL Red Cell Distribution Width 13.2 % Platelet Count 111 X10'3 Mean Platelet Volume 8.4 FL Neutrophils (%) (Auto) 78.1 % Lymphocytes (%) (Auto) 16.6 % Monocytes (%) (Auto) 3.9 % Eosinophils (%) (Auto) 1.1 % Basophils (%) (Auto) 0.3 % Neutrophils # (Auto) 8.7 X10'3 Lymphocytes # (Auto) 1.8 X10'3 Monocytes # (Auto) 0.4 X10'3 Eosinophils # (Auto) 0.1 X10'3 Basophils # (Auto) 0.0 X10'3 CBC Comment Sodium Level 134 MMOL/L Potassium Level 3.6 MMOL/L Chloride Level 97 MMOL/L Carbon Dioxide Level 24.6 MMOL/L Anion Gap 12 Blood Urea Nitrogen 3 MG/DL Creatinine 0.51 MG/DL Estimated GFR/1.73 m2 > 90 ML/MIN BUN/Creatinine Ratio 5.9 Glucose Level 59 MG/DL Osmolality 275 MOSM/K Calcium Level 8.5 MG/DL Magnesium Level 1.7 MG/DL Total Bilirubin 2.8 MG/DL Aspartate Amino Transf (AST/SGOT) 28 U/L Alanine Aminotransferase (ALT/SGPT) 16 U/L Alkaline Phosphatase 86 IU/L Total Protein 6.2 G/DL Albumin 2.7 G/DL Globulin 3.5 G/DL Albumin/Globulin Ratio 0.8 Amylase Level 206 U/L Lipase 221 U/L Chemistry Comments Glucometer 57 mg/dl 111 mg/dl 74 mg/dl Test 07/18/25 16:49 07/18/25 20:27 07/18/25 22:36 07/19/25 02:21 Prothrombin Time 10.6 SECONDS INR International Normalized Ratio 1.0 INR Activated Partial Thromboplast Time 30 SECONDS Coagulation Comments Urine Osmolality 168 MOSM/K Urine Random Creatinine 21.0 MG/DL Urine Random Total Protein 15.6 MG/DL Urine Random Sodium 48 MEQ/L Urine Random Urea 110.0 MG/DL Glucometer 134 mg/dl 128 mg/dl Test 07/19/25 05:38 White Blood Count 6.8 X10'3 Red Blood Count 3.82 X10'6 Hemoglobin 11.9 g/dl Hematocrit 33.8 % Mean Corpuscular Volume 88.5 FL Mean Corpuscular Hemoglobin 31.2 PG Mean Corpuscular Hemoglobin Concent 35.3 g/dL Red Cell Distribution Width 13.3 % Platelet Count 114 X10'3 Mean Platelet Volume 7.9 FL Neutrophils (%) (Auto) 72.6 % Lymphocytes (%) (Auto) 19.9 % Monocytes (%) (Auto) 5.8 % Eosinophils (%) (Auto) 1.5 % Basophils (%) (Auto) 0.2 % Neutrophils # (Auto) 4.9 X10'3 Lymphocytes # (Auto) 1.4 X10'3 Monocytes # (Auto) 0.4 X10'3 Eosinophils # (Auto) 0.1 X10'3 Basophils # (Auto) 0.0 X10'3 CBC Comment Sodium Level 135 MMOL/L Potassium Level 3.2 MMOL/L Chloride Level 100 MMOL/L Carbon Dioxide Level 30.6 MMOL/L Anion Gap 4 Blood Urea Nitrogen 1 MG/DL Creatinine 0.66 MG/DL Estimated GFR/1.73 m2 > 90 ML/MIN BUN/Creatinine Ratio 1.5 Glucose Level 110 MG/DL Calcium Level 8.4 MG/DL Magnesium Level 2.1 MG/DL Total Bilirubin 1.4 MG/DL Aspartate Amino Transf (AST/SGOT) 17 U/L Alanine Aminotransferase (ALT/SGPT) 20 U/L Alkaline Phosphatase 76 IU/L Total Protein 6.2 G/DL Albumin 2.6 G/DL Globulin 3.6 G/DL Albumin/Globulin Ratio 0.7 Lipase 110 U/L Chemistry Comments Imaging: CT scan of the abdomen: Limited evaluation given noncontrast technique. Possible peripancreatic free fluid. Correlate with lipase for possible acute pancreatitis. Hepatomegaly with hepatic steatosis. Bilateral nonobstructive nephrolithiasis. Diverticulosis without evidence of acute diverticulitis. Chest x-ray: No acute cardiopulmonary disease. Abdominal ultrasound: Perihepatic and perisplenic ascites. Nonobstructive left nephrolithiasis measuring 7 mm. No hydronephrosis *Problems/Diagnosis: (1) Acute pancreatitis Status: Acute (2) Alcohol use disorder Status: Acute Total Time Spent on D/C: > 30 Minutes Date of Service: Jul 19, 2025 Billing Provider: SREE PAK MD Problem Qualifiers (1) Acute pancreatitis: Pancreatitis type: alcohol induced Acute pancreatitis complication: unspecified Qualified Codes: K85.20 - Alcohol induced acute pancreatitis without necrosis or infection VIGNESH LANE, RES Jul 19, 2025 15:14
== END 2025-07-19 13:06 | disposition home or self-care (01) | DRG 282 ==
LOC: ER 16:57 → ED HOLD 22:23 → PCU 3S 23:50
PROVIDERS: ADMIT Internal Medicine Sleep Medicine; ATTEND Family Medicine
DX: K85.20 Alcohol induced acute pancreatitis without necrosis or infection (principal); E87.20 Acidosis, unspecified; E83.42 Hypomagnesemia; D69.6 Thrombocytopenia, unspecified; E87.1 Hypo-osmolality and hyponatremia; E87.6 Hypokalemia; N20.0 Calculus of kidney; F10.10 Alcohol abuse, uncomplicated; Z88.1 Allergy status to other antibiotic agents; Z88.2 Allergy status to sulfonamides
CPT/HCPCS: 36415; 71045; 74176; 76700; 80053; 80061; 80305; 80320; 81001; 82150; 82570; 82948; 83036; 83605; 83615; 83690; 83735; 83880; 83930; 83935; 84145; 84156; 84300; 84484; 84540; 85025; 85610; 85730; 86140; 87081; 93005; 96361; 96374; 96375; 97116; 97161; 99285; A6258; G0378; J1171; J1650; J1885; J2270; J2405; J2470; J3360; J3411; J3490; J7030; J7120